=== PATIENT | female | born 1955 ===

== ENCOUNTER 2020-10-18 08:34 | Outpatient (CLI) | payer OTHER ==
[~2020-10-18 08:34] MED LIST: NEURONTIN600 MG; SYNTHROID50 MCG; ZOCOR20 MG
== END 2020-10-18 11:09 | disposition home or self-care (01) ==
LOC: NUCLEAR 08:34
PROVIDERS: ATTEND Internal Medicine Cardiovascular Disease
DX: I20.9 Angina pectoris, unspecified (principal)